=== PATIENT | female | born 1955 | race Caucasian/White ===

== ENCOUNTER 2023-01-17 19:29 | Emergency (ER) | payer OTHER ==
[2023-01-17 19:38] VITALS: BP 136/80; PULSE 69; RESP 18; TEMP 97.9; BMI 24.7
[2023-01-17] MEDS ORDERED: IBUPROFEN 600 MG TABLET (FP) PO ONE (19:51)
[2023-01-17] MEDS ORDERED: ACETAMINOPHEN 500 MG TABLET (FP) PO ONE (20:54)
[2023-01-17] MEDS ORDERED: ACETAMINOPHEN 500 MG TABLET (FP) ONE (21:05)
== END 2023-01-17 21:11 | disposition home or self-care (01) ==
LOC: FER 19:29
DX: S93.421A Sprain of deltoid ligament of right ankle, initial encounter (principal); M25.571 Pain in right ankle and joints of right foot; X50.1XXA Overexertion from prolonged static or awkward postures, initial encounter
CPT/HCPCS: 73610-TC-RT-FY; 99283-25